=== PATIENT | male | born 1955 | race American Indian/Alaskan Native ===

== ENCOUNTER 2016-12-24 17:34 | Emergency (ER) | payer OTHER ==
[2016-12-24 17:46] VITALS: BP 126/79; PULSE 80; RESP 18; TEMP 98.4; O2SAT 98
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
--- NOTE | 2016-12-25 09:52 | CARD ---
APPROVED REPORT EKG Measurement Heart [id number] <Conclusion> Normal sinus rhythm Left anterior fascicular block Abnormal ECG
== END 2016-12-24 19:16 | disposition home or self-care (01) ==
LOC: H.ER 17:34
DX: S29.9XXA Unspecified injury of thorax, initial encounter (principal); V43.52XA Car driver injured in collision with other type car in traffic accident, initial encounter; Y92.410 Unspecified street and highway as the place of occurrence of the external cause; I10 Essential (primary) hypertension